=== PATIENT | female | born 1980 | race Two or more races ===

== ENCOUNTER 2017-01-31 16:45 | Inpatient (IN) | payer SELFPAY ==
[~2017-01-31] VITALS: Ht 162 cm; Wt 69.9 kg
[~2017-01-31 16:45] MED LIST: MIDAZOLAM HCL 5 MG/5 ML VIAL ONE
[2017-01-31] MEDS ORDERED: LR 1,000 ML IV ONE (17:39)
[2017-01-31] MEDS ORDERED: CEFAZOLIN 2 GM IVPB PREMIX 50 ML IV ONE ×2 (17:45→19:45)
[2017-01-31 18:44] LABS: BASOPHILS % (AUTO) 0.3 % (0.0-2.0); EOSINOPHILS # (AUTO) 0.1 K/uL (0.0-0.4); HEMATOCRIT 28.8 % (36-48); HEMOGLOBIN 9.6 g/dL (12.0-16.0); LYMPHOCYTES # (AUTO) 1.2 K/uL (1.0-5.5); LYMPHOCYTES % (AUTO) 16.8 % (20.5-51.5); MEAN CORPUSCULAR HEMOGLOBIN 27 pg (27-31); MEAN CORPUSCULAR HGB CONC 33 % (32-36); MEAN CORPUSCULAR VOLUME 80 fL (79.0-98.0); MONOCYTES # (AUTO) 0.5 K/uL (0.0-1.0); MONOCYTES % (AUTO) 7.7 % (1.7-9.3); NEUTROPHILS # (AUTO) 5.1 K/uL (1.8-7.7); NEUTROPHILS % (AUTO) 74.2 % (40.0-70.0); PLATELET COUNT (AUTO) 165 K/uL (130-430); RED BLOOD CELL COUNT(AUTO) 3.59 MIL/uL (4.2-6.2); RED CELL DISTRIBUTION WIDTH 13.5 % (9.0-15.0); WHITE BLOOD COUNT (AUTO) 6.9 K/uL (4.8-10.8)
[2017-01-31] MEDS ORDERED: TRIAMCINOLONE ACETONIDE 40 MG/ML IM ONE (19:45)
[2017-01-31] MEDS ORDERED: NS IRRIG SOLN 1000 ML IR ONE (19:45)
[2017-01-31] MEDS ORDERED: OXYTOCIN 10 UNIT/ML VIAL IV ONE (19:45)
[2017-01-31] MEDS ORDERED: LR 1,000 ML IV.SOLN IV ONE (19:45)
[2017-01-31] MEDS ORDERED: OXYTOCIN/NORMAL SALINE 1,000 ML IV ONE ×2 (19:52→21:21)
[2017-01-31] MEDS ORDERED: ANUSOL 1 EA SUPP.RECT (PREPARATION H) RC PRN (20:00)
[2017-01-31] MEDS ORDERED: MEASLES,MUMPS&RUBELLA VACC/PF 12500 UNIT/0.5 ML VIAL SUBQ PRN (20:00)
[2017-01-31] MEDS ORDERED: HYDROcodone/ACETAMIN 5-325 MG TAB (NORCO/ VICODIN) PO PRN (20:00)
[2017-01-31] MEDS ORDERED: LANOLIN 7 GM OINT. TP PRN (20:00)
[2017-01-31] MEDS ORDERED: OXYCODONE/ACETAMINOPHEN 5-325 TABLET PO PRN ×2 (20:00)
[2017-01-31 20:01] VITALS: BP 113/78; PULSE 85; RESP 18; TEMP 97.9
[2017-01-31] MEDS ORDERED: TEMAZEPAM 15 MG CAPSULE PO PRN (21:00)
[2017-01-31 22:00] VITALS: BP 113/78; PULSE 85
[2017-01-31] MEDS: CEFAZOLIN 1 GM IVPB PREMIX 50 ML IV SCH (23:58)
[2017-02-01] MEDS: CEFAZOLIN 1 GM IVPB PREMIX 50 ML IV SCH ×2 (05:54→12:18)
[2017-02-01] MEDS: IBUPROFEN 600 MG TABLET PO SCH ×4 (05:55→23:55)
[2017-02-01 07:36] LABS: BASOPHILS % (AUTO) 0.1 % (0.0-2.0); EOSINOPHILS % (AUTO) 0.4 % (0.0-4.0); HEMATOCRIT 31.3 % (36-48); HEMOGLOBIN 10.1 g/dL (12.0-16.0); LYMPHOCYTES # (AUTO) 0.7 K/uL (1.0-5.5); LYMPHOCYTES % (AUTO) 7.2 % (20.5-51.5); MEAN CORPUSCULAR HEMOGLOBIN 26 pg (27-31); MEAN CORPUSCULAR HGB CONC 32 % (32-36); MEAN CORPUSCULAR VOLUME 81 fL (79.0-98.0); MONOCYTES # (AUTO) 0.6 K/uL (0.0-1.0); MONOCYTES % (AUTO) 5.9 % (1.7-9.3); NEUTROPHILS % (AUTO) 86.4 % (40.0-70.0); PLATELET COUNT (AUTO) 168 K/uL (130-430); RED BLOOD CELL COUNT(AUTO) 3.85 MIL/uL (4.2-6.2); RED CELL DISTRIBUTION WIDTH 13.1 % (9.0-15.0); WHITE BLOOD COUNT (AUTO) 10.3 K/uL (4.8-10.8)
[2017-02-01] MEDS: DOCUSATE SODIUM 100 MG CAPSULE PO PRN ×2 (12:14→23:54)
[2017-02-01] MEDS: SIMETHICONE 80 MG TAB.CHEW PO PRN ×2 (12:14→23:55)
[2017-02-02] MEDS: SIMETHICONE 80 MG TAB.CHEW PO PRN (05:52)
[2017-02-02] MEDS: IBUPROFEN 600 MG TABLET PO SCH ×4 (05:52→23:50)
[2017-02-03] MEDS: IBUPROFEN 600 MG TABLET PO SCH (05:57)
== END 2017-02-03 11:05 | disposition home or self-care (01) | DRG 765 ==
LOC: SPU 16:45
PROVIDERS: ADMIT Obstetrics & Gynecology; ATTEND Obstetrics & Gynecology
PROC: 0U570ZZ Destruction of Bilateral Fallopian Tubes, Open Approach (ICD-10-PCS; 2017-01-31)
PROC: 10D00Z1 Extraction of Products of Conception, Low, Open Approach (ICD-10-PCS; principal; 2017-01-31 19:45)
DX: O34.211 Maternal care for low transverse scar from previous cesarean delivery (principal); J45.901 Unspecified asthma with (acute) exacerbation; O24.429 Gestational diabetes mellitus in childbirth, unspecified control; O41.8X30 Other specified disorders of amniotic fluid and membranes, third trimester, not applicable or unspecified; O69.81X0 Labor and delivery complicated by cord around neck, without compression, not applicable or unspecified; O99.02 Anemia complicating childbirth; D50.0 Iron deficiency anemia secondary to blood loss (chronic); O99.52 Diseases of the respiratory system complicating childbirth; Z37.0 Single live birth; Z30.2 Encounter for sterilization; Z3A.39 39 weeks gestation of pregnancy; O09.523 Supervision of elderly multigravida, third trimester
CPT/HCPCS: 36415; 81002-TC; 85025; 86592; 86886; 86900; 86901; 88302; 94760; J0690; J2250; J2590; J3301; J7120